=== PATIENT | male | born 1985 ===

== ENCOUNTER 2017-02-18 00:54 | Emergency (ER) | payer SELFPAY ==
[2017-02-18 01:10] VITALS: TEMP 97; O2SAT 99
--- NOTE | 2017-02-18 01:16 | C.PDOC ---
History Of Present Illness pt wants a place to sleep. Is homeless. States he does drugs. Informed that there are no available beds for detox. Denies any suicidal or homicidal ideation Time Seen by Provider: 02/18/17 01:12 Chief Complaint (Nursing): Substance Abuse History Per: Patient History/Exam Limitations: no limitations Onset/Duration Of Symptoms: Days Current Symptoms Are (Timing): Still Present Suicide/Self Injury Attempted (Context): None Modifying Factor(s): Narcotics, Cocaine Severity: None Pain Scale Rating Of: 0 Associated Symptoms: denies: Anger Involuntary Hold By: None Recent travel outside of the [place]: No Additional History Per: Patient Past Medical History Reviewed: Historical Data, Nursing Documentation, Vital Signs Vital Signs: Last Vital Signs Temp 97 F L 02/18/17 01:01 Pulse 89 02/18/17 01:01 Resp 16 02/18/17 01:01 BP 118/67 02/18/17 01:01 Pulse Ox 99 02/18/17 01:17 - Medical History PMH: Bipolar Disorder, Depression, Hepatitis Denies: Diabetes, HIV, HTN, Chronic Kidney Disease, Seizures, Sexually Transmitted Disease Surgical History: Appendectomy - [facility] DETOXIFICATION SERVICES FOR SUBSTANCE ABUSE TREATMENT (05/17/16) Family History: States: No Known Family Hx - Social History Hx Alcohol Use: No Hx Substance Use: Yes - Immunization History Hx Tetanus Toxoid Vaccination: Yes Hx Influenza Vaccination: No Hx Pneumococcal Vaccination: No Review Of Systems Constitutional: Negative for: Fever, Chills Cardiovascular: Negative for: Chest Pain Respiratory: Negative for: Shortness of Breath Gastrointestinal: Negative for: Nausea, Abdominal Pain Genitourinary: Negative for: Dysuria Musculoskeletal: Negative for: Back Pain Skin: Negative for: Jaundice Neurological: Negative for: Weakness Psych: Negative for: Anxiety Physical Exam - Physical Exam Appears: Non-toxic, No Acute Distress Skin: Warm, Dry Oral Mucosa: Moist Neck: Supple Cardiovascular: Rhythm Regular Respiratory: No Rales, No Rhonchi, No Wheezing Gastrointestinal/Abdominal: Soft, No Tenderness Back: Normal Inspection Extremity: Normal ROM Extremity: Bilateral: Normal Color And Temperature Neurological/Psych: Oriented x3, Normal Speech, Normal Cognition Gait: Steady ED Course And Treatment O2 Sat by Pulse Oximetry: 99 Pulse Ox Interpretation: Normal ED OBSERVATION Discharge: Yes Date of observation admission: 02/18/17 Time of observation admission: 01:14 - Observation admission statement Patient is being placed in observation because:: homeless - Goals of Observation Goals of observation are:: social service - Progress Note Progress Note: 02/18/17 01:15 vitals stable, wants to just sleep Disposition Counseled Patient/Family Regarding: Studies Performed, Diagnosis, Need For Followup - Disposition Referrals: [facility] [Outside] Disposition: HOME/ ROUTINE Disposition Time: 01:13 Condition: FAIR Instructions: Polysubstance Abuse (ED) - Clinical Impression Clinical Impression: Drug dependence
[2017-02-18 05:44] VITALS: BP 129/78; PULSE 84; RESP 18
== END 2017-02-18 05:45 | disposition home or self-care (01) ==
LOC: C.ER 00:54
DX: F19.20 Other psychoactive substance dependence, uncomplicated (principal)

== ENCOUNTER 2017-02-18 08:06 | Inpatient (IN) | payer OTHER ==
[2017-02-18 08:12] VITALS: O2SAT 100
--- NOTE | 2017-02-18 08:30 | C.PDOC ---
History Of Present Illness 31 y/o male presents to the ED for psychiatric evaluation. Pt reports suicidal ideation with plan to overdose on heroin. Denies homicidal ideation or any other physical complaints. Time Seen by Provider: 02/18/17 08:08 Chief Complaint (Nursing): Psychiatric Evaluation History Per: Patient History/Exam Limitations: no limitations Onset/Duration Of Symptoms: Days Current Symptoms Are (Timing): Still Present Suicide/Self Injury Attempted (Context): None Modifying Factor(s): Narcotics Severity: Moderate Associated Symptoms: Suicidal Thoughts, Suicidal Plan Involuntary Hold By: None Recent travel outside of the [place]: No Past Medical History Reviewed: Historical Data, Nursing Documentation, Vital Signs Vital Signs: Last Vital Signs Temp 98.2 F 02/18/17 08:09 Pulse 71 02/18/17 08:09 Resp 18 02/18/17 08:09 BP 123/78 02/18/17 08:09 Pulse Ox 100 02/18/17 08:31 - Medical History PMH: Bipolar Disorder, Depression, Hepatitis Surgical History: Appendectomy - [facility] Procedures DETOXIFICATION SERVICES FOR SUBSTANCE ABUSE TREATMENT (05/17/16) Family History: States: Unknown Family Hx - Social History Hx Alcohol Use: No Hx Substance Use: Yes - Immunization History Hx Tetanus Toxoid Vaccination: Yes Hx Influenza Vaccination: No Hx Pneumococcal Vaccination: No Review Of Systems Constitutional: Negative for: Fever Cardiovascular: Negative for: Chest Pain Respiratory: Negative for: Shortness of Breath Gastrointestinal: Negative for: Vomiting, Abdominal Pain Psych: Positive for: Suicidal ideation Physical Exam - Physical Exam Appears: Non-toxic, No Acute Distress Skin: Warm, Dry, No Rash Head: Normacephalic Neck: Normal, Normal ROM, Supple Chest: Symmetrical, No Tenderness Cardiovascular: Rhythm Regular, No Murmur Respiratory: Normal Breath Sounds, No Rales, No Rhonchi, No Wheezing Gastrointestinal/Abdominal: Normal Exam, Soft, No Tenderness Extremity: Normal ROM Extremity: Bilateral: Atraumatic Neurological/Psych: Oriented x3, Normal Speech ED Course And Treatment - Laboratory Results Result Diagrams: 02/18/17 08:51 02/18/17 08:51 Lab Interpretation: Normal O2 Sat by Pulse Oximetry: 100 (room air) Pulse Ox Interpretation: Normal Progress Note: Plan: CRISIS evaluation. Case discussed with crisis slitter cut off operator and request Psych admission to Dr Castelan Reassessment Condition: Unchanged - Physician Consult Information Physician Contacted: Isra Castelan Outcome Of Conversation: admit Disposition Doctor Will See Patient In The: Hospital - Disposition Disposition: HOSPITALIZED Disposition Time: 10:10 Condition: STABLE - POA Present On Arrival: None - Clinical Impression Clinical Impression: Opioid abuse, Bipolar 1 disorder, depressed, severe, Drug dependence - PA / LINEN ATTENDANT / Resident Statement MD/DO has reviewed & agrees with the documentation as recorded. - Scribe Statement The provider has reviewed the documentation as recorded by the Tony Abarca All medical record entries made by the Tony were at my direction and personally dictated by me. I have reviewed the chart and agree that the record accurately reflects my personal performance of the history, physical exam, medical decision making, and the department course for this patient. I have also personally directed, reviewed, and agree with the discharge instructions and disposition. Decision To Admit - Pt Status Changed To: Hospital Disposition Of: Inpatient - Admit Certification Admit to Inpatient:: After my assessment, the patient will require hospitalization for at least two midnights. This is because of the severity of symptoms shown, intensity of services needed, and/or the medical risk in this patient being treated as an outpatient. - InPatient: Physician Admission Certification: I certify that this patient requires 2 or more midnights of care for the following reason:: Opioid Abuse Disorder. Bipolar - . Bed Request Type: Psychiatry Admitting Physician: Isra Castelan Patient Diagnosis: Opioid abuse, Bipolar 1 disorder, depressed, severe
[2017-02-18 08:55] LABS: BASO # 0.1 K/uL (0.0-0.2); BASO % 0.8 % (0.0-2.0); EOS # 0.4 K/uL (0.0-0.7); EOS % 4.7 % (0.0-4.0); HEMATOCRIT 42.7 % (35.0-51.0); LYMPH # 1.4 K/uL (1.0-4.3); LYMPH % 18.7 % (20.0-40.0); MEAN CELL VOLUME 78.9 fL (80.0-94.0); MEAN CORPUSCULAR HEMOGLOBIN 25.6 pg (27.0-31.0); MEAN CORPUSCULAR HGB CONC 32.4 g/dL (33.0-37.0); MEAN PLATELET VOLUME 7.8 fL (7.2-11.7); MONO # 1.1 K/uL (0.0-0.8); MONO % 14.3 % (0.0-10.0); RED CELL DISTRIBUTION WIDTH 14.7 % (11.5-14.5); WHITE BLOOD COUNT 7.7 K/uL (4.8-10.8)
[2017-02-18 09:02] LABS: CHLORIDE 102 mmol/L (98-107)
[2017-02-18 09:03] LABS: POTASSIUM 4.2 mmol/L (3.6-5.2); SODIUM 140 mmol/L (132-148)
[2017-02-18 09:05] LABS: BILIRUBIN,TOTAL 0.6 mg/dL (0.2-1.3); GFR AFRICAN-AMERICAN > 60
[2017-02-18 09:06] LABS: ALB/GLOB RATIO 1.1 (1.0-2.1); ALKALINE PHOSPHATASE 184 U/L (38-126); ALT/SGPT 399 U/L (21-72); AST/SGOT 338 U/L (17-59); BLOOD UREA NITROGEN 12 mg/dL (9-20); CALCIUM 8.9 mg/dl (8.6-10.4); CARBON DIOXIDE 29 mmol/L (22-30); GLUCOSE,RANDOM 79 mg/dL (75-110); TOTAL PROTEIN 7.9 g/dL (6.3-8.3)
[2017-02-18 09:07] LABS: ALCOHOL SERUM < 10 mg/dl (0-10)
[2017-02-18 09:13] LABS: RBC URINE 1 /hpf (0-3); URINE BACTERIA RARE (<OCC); URINE BILIRUBIN NEGATIVE (NEGATIVE); URINE BLOOD NEGATIVE (NEGATIVE); URINE COLOR Yellow (YELLOW); URINE GLUCOSE (UA) NORMAL (Normal); URINE KETONE NEGATIVE (NEGATIVE); URINE LEUKOCYTE ESTERASE TRACE Leu/uL (Negative); URINE PROTEIN NEGATIVE (NEGATIVE)
[2017-02-18 09:25] LABS: WBC URINE 19 /hpf (0-5)
--- NOTE | 2017-02-18 11:56 | PCM.PSYCH ---
Initial Psychiatric Evaluation - Initial Psychiatric Evaluation Type of Admission: Voluntary Legal Status: Capacity Chief Complaint (in patient's own words): "I need help" History of Present Illness and Precipitating Events: The patient is seen, chart reviewed and case discussed. This is a 31-year-old male, single, has a 10-year-old son, homeless and unemployed. He came from [facility]. 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 The patient is a poor historian and he is in withdrawal. He claims he was depressed for several months and also felt suicidal and thought about OD'ing on drugs. He reports previous depression episodes and suicide attempts and [place] [address] [facility] [facility]. However, he points out that his main problem is drug use as he uses 13 bags of intravenous heroin every day since age 24. He also shoots cocaine x7 years. He smokes 1 pack per day cigarettes but he denies other drugs. He was in detox 3 or 4 times but has never done rehabilitation or methadone maintenance. He briefly did Suboxone with a doctor. He denies suicidal ideation in the hospital right now and agrees to talk to the nurses and follow his safety plan. Past psych history: 3 admissions and few of suicide attempts by overdose. Last one was several months ago. No history of psychosis or nikki. Medical history: Denies Family history: Denies Current Medications: Active Medications Generic Name Dose Route Start Last Admin Trade Name Freq PRN Reason Stop Dose Admin Al Hydrox/Mg Hydrox/Simethicone 30 ml 02/18/17 12:00 Maalox 30 Ml PO TID PRN Indigestion / Heartburn Clonidine HCl 0.1 mg 02/18/17 11:51 Catapres PO Q8 PRN COWS Score More or Equal to 5 Fluoxetine HCl 20 mg 02/18/17 12:00 Prozac PO DAILY MARYCRUZ Loperamide HCl 2 mg 02/18/17 11:51 Imodium PO Q8 PRN Diarrhea Ondansetron HCl 4 mg 02/18/17 11:51 Zofran Tab PO Q8 PRN Nausea/Vomiting Past Psychiatric History - Past Psychiatric History Previous Treatment History: Inpatient Pertinent Medical Hx (Current Medical&Sleep Prob, Allergies): Allergies Allergy/AdvReac Type Severity Reaction Status Date / Time No Known Allergies Allergy Verified 02/18/17 01:04 No Known Home Med 02/18/17 Review of Systems - Neurological Neurological: UNREMARKABLE - Psychiatric Psychiatric: Abnormal Sleep Pattern, Anhedonia, Anxiety, Depression, Difficulty Concentrating, Irritability. absent: Hallucinations, Homicidal Ideation, Suicidal Ideation Mental Status Examination - Personal Presentation Personal Presentation: Looks older than stated age - Affect Affect: Constricted - Motor Activity Motor Activity: Calm - Reliability in Providing Information Reliability in Providing Information: Fair - Speech Speech: Organized - Mood Mood: Depressed, Anxious - Formal Thought Process Formal Thought Process: No Impairment - Cognitive Functions Orientation: Person, Place, Situation, Time Sensorium: Alert Attention/Concentration: Easily distracted Estimate of Intelligence: Below average Judgement: Intact, as evidence by: Insight regarding need for hospitalization Memory: Recent intact, as evidence by: Ability to recall events of the day, Remote intact, as evidenced by: Abilit to recall sig. life events - Risk Risk: Withdrawal, Diminished functioning - Strength & Assets Inventory Strength & Assets Inventory: Life experience, Cooperative - Limitations Limitations: Living alone DSM 5 DX - DSM 5 DSM 5 Diagnosis: Major depression, severe recurrent, without psychosis Opioid withdrawal Opioid use d/o - severe Cocaine use severe - Recommended/Plan of Treatment Treatment Recommendations and Plan of Treatment: Depression: -Prozac 20 mg -Attend groups and activities -Support and psychoeducation -Supportive therapy and CBT Opioids: -Methadone detox -As needed medications -Attend groups and activities -GA and CBT for abstinence and relapse prevention Cocaine: -Gabapentin -GA for abstinence Nicotine: -Patch -GA for abstinence 32 minutes Projected ELOS: 5 days Prognosis: Good with treatment Discharge Plan and Discharge Criteria: No wdw sxs Refer to [facility], obtain health insurance and consider MAT and IOP afterwards - Smoking Cessation Smoking Cessation Initiated: Yes
[2017-02-18] MEDS ORDERED: Aluminum Hydroxide/Magnesium Hydroxide Susp (30 mL) PO PRN (12:00)
--- NOTE | 2017-02-19 11:42 | PCM.PYCHPN ---
Psychiatric Progress Note - Psychiatric Progress Note Patient seen today, length of contact: 16 min Patient Chief Complaint: "I am tired" Problems Identified/Issues Discussed: The pt is seen, chart reviewed, case discussed with staff. The pt is compliant with medications and reports no side-effects. Symptoms are improving but needs more time to stabilize. After care discussed, wants to go to [facility] but at the same time he is not that motivated or interested. Likely AMA risk (addressed) support and psychoeducation given. WI used Medication Change: Yes Medical Record Reviewed: Yes Mental Status Examination - Cognitive Function Orientation: Person, Place, Situation, Time Memory: Intact Attention: Poor Concentration: Poor Association: WNL Fund of Knowledge: Poor - Mood Mood: Depressed, Anxious - Affect Affect: Constricted - Speech Speech: Appropriate - Formal Thought Process Formal Thought Process: No Impairment - Suicidal Ideation Suicidal Ideation: No - Homicidal Ideation Homicidal Ideation: No Goal/Treatment Plan - Goal/Treatment Plan Need for Continued Stay: Discharge may exacerbated symptoms, Severe functional impairment Progress Toward Problem(s) and Goals/Treatment Plan: Depression: -Prozac 20 mg -Attend groups and activities -Support and psychoeducation -Supportive therapy and CBT Opioids: -Methadone detox -As needed medications -Attend groups and activities -WI and CBT for abstinence and relapse prevention Cocaine: -Gabapentin -WI for abstinence Nicotine: -Patch -WI for abstinence Estimated Date of D/C: 02/23/17
[2017-02-20 11:52] LABS: CHLORIDE 101 mmol/L (98-107); POTASSIUM 4.2 mmol/L (3.6-5.2); SODIUM 139 mmol/L (132-148)
[2017-02-20 11:54] LABS: ALB/GLOB RATIO 1.1 (1.0-2.1); AST/SGOT 378 U/L (17-59); BILIRUBIN,TOTAL 0.6 mg/dL (0.2-1.3); BLOOD UREA NITROGEN 17 mg/dL (9-20); CARBON DIOXIDE 28 mmol/L (22-30); GFR AFRICAN-AMERICAN > 60; TOTAL PROTEIN 7.5 g/dL (6.3-8.3)
[2017-02-20 11:55] LABS: ALKALINE PHOSPHATASE 155 U/L (38-126); ALT/SGPT 456 U/L (21-72); CALCIUM 9.2 mg/dl (8.6-10.4); GLUCOSE,RANDOM 130 mg/dL (75-110)
--- NOTE | 2017-02-20 12:44 | PCM.PYCHPN ---
Psychiatric Progress Note - Psychiatric Progress Note Patient seen today, length of contact: 16 min Patient Chief Complaint: "I am OK" Problems Identified/Issues Discussed: The pt is seen, chart reviewed, case discussed with staff. Symptoms are improving but needs more time to stabilize. After care discussed, wants to go to [facility] but at the same time he later admitted that he may just do IOP and Vivitrol shot He is planning on staying with his GF in and she is Support and psychoeducation given. CA used Medication Change: Yes (detox ending) Medical Record Reviewed: Yes Mental Status Examination - Cognitive Function Orientation: Person, Place, Situation, Time Memory: Intact Attention: WNL Concentration: WNL Association: WNL Fund of Knowledge: WNL - Mood Mood: Depressed, Anxious - Affect Affect: Constricted - Speech Speech: Appropriate - Formal Thought Process Formal Thought Process: No Impairment - Suicidal Ideation Suicidal Ideation: No - Homicidal Ideation Homicidal Ideation: No Goal/Treatment Plan - Goal/Treatment Plan Need for Continued Stay: Discharge may exacerbated symptoms, Severe functional impairment Progress Toward Problem(s) and Goals/Treatment Plan: Depression: -Prozac 20 mg -Attend groups and activities -Support and psychoeducation -Supportive therapy and CBT Opioids: -Methadone detox -As needed medications -Attend groups and activities -CA and CBT for abstinence and relapse prevention Cocaine: -Gabapentin -CA for abstinence Nicotine: -Patch -CA for abstinence Estimated Date of D/C: 02/23/17
[2017-02-21] MEDS ORDERED: Pneumococcal 23-Valent Vaccine IM ONE (10:00)
--- NOTE | 2017-02-21 18:06 | PCM.PYCHPN ---
Psychiatric Progress Note - Psychiatric Progress Note Patient seen today, length of contact: 15 minutes Patient Chief Complaint: I don't take selective medications. I take what I need Problems Identified/Issues Discussed: Patient seen. Chart reviewed. Case discussed with the staff. Issues related to illness and treatment were discussed with the patient. Reported compliant with treatment with no adverse affects. Staff reported that patient is not taking all of his medications but he picks some of the medications which she take and refuses to take other medications. Issues discussed with the patient. Patient reported he doesn't take all the medication he just take what he needs. Education provided to the patient and after that patient was encouraged to take all of his medications. The time of evaluation was awake alert oriented 3 had no delusions or auditory or visual hallucinations, no suicidal ideations homicidal ideations. Medical Problems: None reported Diagnostic Results: Reviewed DSM 5 Symptoms Update: Improving with treatment Medication Change: No Medical Record Reviewed: Yes Mental Status Examination - Cognitive Function Orientation: Person, Place, Situation, Time Memory: Intact Attention: WNL Concentration: WNL Association: WN Fund of Knowledge: [facility] Decription of patient's judgement and insights: Fair - Mood Mood: Neutral - Affect Affect: Blunted - Speech Speech: Appropriate - Formal Thought Process Formal Thought Process: No Impairment - Suicidal Ideation Suicidal Ideation: No - Homicidal Ideation Homicidal Ideation: No Goal/Treatment Plan - Goal/Treatment Plan Need for Continued Stay: Remain at risks for inpatient hospitalization, Discharge may exacerbated symptoms, Severe functional impairment Progress Toward Problem(s) and Goals/Treatment Plan: Patient education Supportive therapy Continue treatment as before Estimated Date of D/C: 02/23/17 - Smoking Cessation Smoking Cessation Initiated: Yes
--- NOTE | 2017-02-22 16:04 | PCM.PYCHPN ---
Psychiatric Progress Note - Psychiatric Progress Note Patient seen today, length of contact: 15 minutes Patient Chief Complaint: I'm feeling much better now Problems Identified/Issues Discussed: Patient seen. Chart reviewed. Case discussed with the staff. Issues related to illness and treatment were discussed with the patient. Reported compliant with treatment with no adverse affects. Patient reported taking all of his medications and feeling better .staff also confirmed the above . At the time of evaluation was awake alert oriented 3 had no delusions or auditory or visual hallucinations, no suicidal ideations homicidal ideations. Medical Problems: None reported Diagnostic Results: Reviewed DSM 5 Symptoms Update: Improving with treatment Medication Change: No Medical Record Reviewed: Yes Mental Status Examination - Cognitive Function Orientation: Person, Place, Situation, Time Memory: Intact Attention: WNL Concentration: WNL Association: WNL Fund of Knowledge: [facility] Decription of patient's judgement and insights: Fair - Mood Mood: Neutral - Affect Affect: Other (Appropriate) - Speech Speech: Appropriate - Formal Thought Process Formal Thought Process: No Impairment Psychotic Thoughts and Behaviors: None - Suicidal Ideation Suicidal Ideation: No - Homicidal Ideation Homicidal Ideation: No Goal/Treatment Plan - Goal/Treatment Plan Need for Continued Stay: Remain at risks for inpatient hospitalization, Discharge may exacerbated symptoms, Severe functional impairment Progress Toward Problem(s) and Goals/Treatment Plan: Patient education Supportive therapy Continue treatment as before Estimated Date of D/C: 02/23/17 - Smoking Cessation Smoking Cessation Initiated: Yes
[2017-02-23 07:30] VITALS: BP 126/84; PULSE 20; RESP 20; TEMP 98
--- NOTE | 2017-02-23 10:01 | PCM.PYCHDC ---
Mental Status Examination - Mental Status Examination Orientation: Person, Place, Situation, Time Memory: Intact Mood: Anxious Affect: Constricted Speech: Appropriate Attention: WNL Concentration: WNL Association: WNL Fund of Knowledge: WNL Formal Thought Process: No Impairment Suicidal Ideation: No Current Homicidal Ideation?: No Discharge Summary - Discharge Note Reason for Hospitalization: Feeling depressed, suicidal, heroin withdrawal Consultations:: List each consultation separately and include: 1. Reason for request. 2. Findings. 3. Follow-up Summary of Hospital Course include:: 1. Description of specific treatment plan utilized for patients during their course of treatmen. 2. Summarize the time- course for resolution of acute symptoms and/or regressed behaviors. 3. Describe issues identified and worked on during hospitalization. 4. Describe medication utilized. 5. Describe medical problems identified and treated. 6. Reassessment of suicide risk Summary of Hospital Course: The patient is seen, chart reviewed and case discussed. On admission: This is a 31-year-old male, single, has a 10-year-old son, homeless and unemployed. He came from [facility]. 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 The patient is a poor historian and he is in withdrawal. He claims he was depressed for several months and also felt suicidal and thought about OD'ing on drugs. He reports previous depression episodes and suicide attempts and was hospitalized 3 times at [facility] in [facility]. However, he points out that his main problem is drug use as he uses 13 bags of intravenous heroin every day since age 24. He also shoots cocaine x7 years. He smokes 1 pack per day cigarettes but he denies other drugs. He was in detox 3 or 4 times but has never done rehabilitation or methadone maintenance. He briefly did Suboxone with a doctor. He denies suicidal ideation in the hospital right now and agrees to talk to the nurses and follow his safety plan. Past psych history: 3 admissions and few of suicide attempts by overdose. Last one was several months ago. No history of psychosis or nikki. Medical history: Denies Family history: Denies Hospital course: The pt was admitted and started on treatment with psychotherapy, support, psychoeducation and medications. GA and CBT used. The pt attended groups and activities, as well as milieu therapy. He was not much motivated All the risks and benefits of medications are discussed and the patient understood and agreed. After care discussed with the patient. He was initially interested in going to a rehab, ie [facility] and that his k - Final Diagnosis (DSM 5) Condition upon Discharge: STABLE DSM 5: Major depression, severe recurrent, without psychosis Opioid withdrawal Opioid use d/o - severe Cocaine use severe Disposition: HOME/ ROUTINE Follow-up Treatment Plan: Continue below medications after discharge. Follow after care plan as discussed: IOP Consider MAT Use relapse prevention skills Return to ER or call 911 if suicidal, homicidal or symptoms relapse. Stay away from stress, alcohol and drugs. Prescriptions/Medication Reconciliation: FLUoxetine [Prozac] 20 mg PO DAILY #30 cap Gabapentin [Neurontin] 300 mg PO BID #60 cap traZODone [Desyrel] 100 mg PO HS PRN #30 tab PRN Reason: Insomnia - Smoking Cessation Smoking Cessation Medication prescribed: No - Antipsychotic Medications Pt discharged on 2 or more routine antipsychotic medications: No
== END 2017-02-23 10:50 | disposition home or self-care (01) | DRG 744 ==
LOC: C.ER 08:06 → C.5E 10:06
PROVIDERS: ADMIT Psychiatry & Neurology Psychiatry; ATTEND Psychiatry & Neurology Psychiatry
PROC: HZ2ZZZZ Detoxification Services for Substance Abuse Treatment (ICD-10-PCS; principal; 2017-02-18)
PROC: HZ32ZZZ Individual Counseling for Substance Abuse Treatment, Cognitive-Behavioral (ICD-10-PCS; 2017-02-18)
PROC: HZ42ZZZ Group Counseling for Substance Abuse Treatment, Cognitive-Behavioral (ICD-10-PCS; 2017-02-18)
PROC: HZ36ZZZ Individual Counseling for Substance Abuse Treatment, Psychoeducation (ICD-10-PCS; 2017-02-18)
PROC: HZ46ZZZ Group Counseling for Substance Abuse Treatment, Psychoeducation (ICD-10-PCS; 2017-02-18)
PROC: HZ59ZZZ Individual Psychotherapy for Substance Abuse Treatment, Supportive (ICD-10-PCS; 2017-02-18)
DX: F11.23 Opioid dependence with withdrawal (principal); F33.2 Major depressive disorder, recurrent severe without psychotic features; F14.10 Cocaine abuse, uncomplicated; R45.851 Suicidal ideations; K75.9 Inflammatory liver disease, unspecified; F17.210 Nicotine dependence, cigarettes, uncomplicated; Z59.0 Homelessness

== ENCOUNTER 2017-04-04 02:30 | Inpatient (IN) | payer OTHER ==
--- NOTE | 2017-04-04 03:18 | C.PDOC ---
History Of Present Illness A 31 y/o M c/o feeling depressed after his mother past away a few weeks ago. Pt has a Hx of heroin and cocaine use, with his last use being tonight. Denies suicidal, homicidal ideation, or any physical complaints. Time Seen by Provider: 04/04/17 03:16 Chief Complaint (Nursing): Psychiatric Evaluation History Per: Patient History/Exam Limitations: no limitations Onset/Duration Of Symptoms: Hrs Current Symptoms Are (Timing): Still Present Suicide/Self Injury Attempted (Context): None Modifying Factor(s): Narcotics (Heroin), Cocaine Severity: Mild Associated Symptoms: Depression. denies: Suicidal Thoughts, Suicidal Plan Involuntary Hold By: None Recent travel outside of the [place]: No Additional History Per: Patient Past Medical History Reviewed: Historical Data, Nursing Documentation, Vital Signs Vital Signs: Last Vital Signs Temp 98.9 F 04/04/17 03:03 Pulse 78 04/04/17 03:03 Resp 20 04/04/17 03:03 BP 111/68 04/04/17 03:03 Pulse Ox 96 04/04/17 03:18 - Medical History PMH: Bipolar Disorder, Depression, Hepatitis Denies: Anxiety, Diabetes, HIV, HTN, Personality Disorder, Chronic Kidney Disease, Schizophrenia, Seizures, Sexually Transmitted Disease Surgical History: Appendectomy - [facility] Procedures DETOXIFICATION SERVICES FOR SUBSTANCE ABUSE TREATMENT (02/18/17) GROUP [employer] TIME SALES SUPERVISOR FOR SUBSTANCE ABUSE TREATMENT, PSYCHOEDUCATION (02/18/17) GROUP RADIO TIME SALES SUPERVISOR FOR SUBSTANCE ABUSE, COGNITIVE BEHAVIORAL (02/18/17) INDIV RADIO TIME SALES SUPERVISOR FOR SUBSTANCE ABUSE TREATMENT, PSYCHOEDUCATION (02/18/17) INDIV RADIO TIME SALES SUPERVISOR FOR SUBSTANCE ABUSE, COGNITIVE BEHAVIORAL (02/18/17) INDIV PSYCHOTHERAPY FOR SUBSTANCE ABUSE TREATMENT, SUPPORT (02/18/17) Family History: States: Unknown Family Hx - Social History Hx Alcohol Use: No Hx Substance Use: Yes - Immunization History Hx Tetanus Toxoid Vaccination: Yes Hx Influenza Vaccination: No Hx Pneumococcal Vaccination: No Review Of Systems Except As Marked, All Systems Reviewed And Found Negative. Constitutional: Negative for: Fever, Chills Cardiovascular: Negative for: Chest Pain Respiratory: Negative for: Shortness of Breath Gastrointestinal: Negative for: Nausea, Vomiting, Abdominal Pain, Diarrhea Neurological: Negative for: Weakness, Numbness Psych: Positive for: Depression. Negative for: Suicidal ideation Physical Exam - Physical Exam Appears: Non-toxic, No Acute Distress Skin: Warm, Dry Head: Atraumatic, Normacephalic Cardiovascular: Rhythm Regular Respiratory: Normal Breath Sounds, No Accessory Muscle Use, No Rales, No Rhonchi , No Wheezing Gastrointestinal/Abdominal: Soft, No Tenderness Neurological/Psych: Oriented x3, Normal Speech, Other (Alert and conscious) ED Course And Treatment - Laboratory Results Result Diagrams: 04/04/17 03:31 04/04/17 03:31 O2 Sat by Pulse Oximetry: 96 (RA) Pulse Ox Interpretation: Normal Medical Decision Making Medical Decision Making: Impression: A 31 y/o M c/o feeling depressed after his mother past away a few weeks ago. Plans: -Blood labs -UA Disposition Discussed With DrZena: Isra Castelan Doctor Will See Patient In The: Hospital Counseled Patient/Family Regarding: Diagnosis - Disposition Disposition: HOSPITALIZED Disposition Time: 06:38 Condition: STABLE - Clinical Impression Clinical Impression: Depression, Opioid abuse - Scribe Statement The provider has reviewed the documentation as recorded by the Scribmanju perera All medical record entries made by the Maritaibmanju were at my direction and personally dictated by me. I have reviewed the chart and agree that the record accurately reflects my personal performance of the history, physical exam, medical decision making, and the department course for this patient. I have also personally directed, reviewed, and agree with the discharge instructions and disposition.
[2017-04-04 03:39] LABS: SQUAMOUS EPITHIAL 1 /hpf (0-5); URINE BILIRUBIN NEGATIVE (NEGATIVE); URINE BLOOD NEGATIVE (NEGATIVE); URINE CLARITY Clear (Clear); URINE COLOR Yellow (YELLOW); URINE GLUCOSE (UA) NORMAL (Normal); URINE LEUKOCYTE ESTERASE TRACE Leu/uL (Negative); URINE NITRATE NEGATIVE (NEGATIVE); URINE PROTEIN NEGATIVE (NEGATIVE); URINE UROBILINOGEN NORMAL mg/dL (0.2-1.0)
[2017-04-04 03:40] LABS: BASO % 0.6 % (0.0-2.0); EOS # 0.3 K/uL (0.0-0.7); EOS % 3.9 % (0.0-4.0); HEMOGLOBIN 12.5 g/dL (12.0-18.0); LYMPH # 2.2 K/uL (1.0-4.3); LYMPH % 31.1 % (20.0-40.0); MEAN CELL VOLUME 78.8 fL (80.0-94.0); MEAN CORPUSCULAR HEMOGLOBIN 24.7 pg (27.0-31.0); MEAN CORPUSCULAR HGB CONC 31.3 g/dL (33.0-37.0); MONO # 0.9 K/uL (0.0-0.8); MONO % 11.9 % (0.0-10.0); NEUT # 3.8 K/uL (1.8-7.0); NEUT % 52.5 % (50.0-75.0); RBC 5.06 Mil/uL (4.40-5.90); RED CELL DISTRIBUTION WIDTH 15.5 % (11.5-14.5); WHITE BLOOD COUNT 7.2 K/uL (4.8-10.8)
[2017-04-04 03:42] LABS: ALBUMIN 3.9 g/dL (3.5-5.0)
[2017-04-04 03:44] LABS: GFR AFRICAN-AMERICAN > 60; GFR NON-AFRICAN AMERICAN > 60
[2017-04-04 03:45] LABS: ALT/SGPT 409 U/L (21-72); AST/SGOT 319 U/L (17-59); BLOOD UREA NITROGEN 12 mg/dL (9-20); CALCIUM 8.9 mg/dl (8.6-10.4)
[2017-04-04 03:51] LABS: BENZODIAZEPINES, UR NEGATIVE (NEGATIVE)
[2017-04-04 03:52] LABS: BARBITURATES, UR NEGATIVE (NEGATIVE)
[2017-04-04 03:55] LABS: PHENCYCLIDINE, UR NEGATIVE (NEGATIVE)
[2017-04-04 04:03] LABS: OPIATES, UR POSITIVE (NEGATIVE)
--- NOTE | 2017-04-04 10:47 | PCM.PSYCH ---
Initial Psychiatric Evaluation - Initial Psychiatric Evaluation Type of Admission: Voluntary Legal Status: Capacity Chief Complaint (in patient's own words): 'I was feeling depressed and suicidal' History of Present Illness and Precipitating Events: Patient is a 31 years old HM, currently homeless, with a history of Bipolar Disorder, opioid abuse and cocaine abuse came to the ED with depressed mood, and suicidal ideation. Patient reports that he is abusing up to a bundle of heroin daily long with 1 gram of cocaine. He was recently discharged from [facility] almost 2 months ago for the same reason. Patient states that he stopped taking his meds and relapsed on cocaine and heroin. Yesterday he injected almost 10 bags of heroin along with 1 gram of cocaine developed suicidal ideation so came to the hospital; to get help. He reports depressed and irritable mood, feelings of hopelessness and helplessness, and poor sleep. He also reports withdrawal symptoms, i.e, headache , anxiety, nausea, abdominal cramps, joint pains and sweating. He denies any auditory or visual hallucinations or any psychotic symptoms. He denies drinking or any other substance abuse. As per medical history None reported Past Psychiatric History - Past Psychiatric History Previous Treatment History: Inpatient Pertinent Medical Hx (Current Medical&Sleep Prob, Allergies): Allergies Allergy/AdvReac Type Severity Reaction Status Date / Time No Known Allergies Allergy Verified 02/18/17 01:04 FLUoxetine [Prozac] 20 mg PO DAILY #30 cap 02/23/17 Gabapentin [Neurontin] 300 mg PO BID #60 cap 02/23/17 traZODone [Desyrel] 100 mg PO HS PRN #30 tab 02/23/17 Review of Systems - Review of Systems All systems: reviewed and no additional remarkable complaints except - Psychiatric Psychiatric: Anxiety, Depression, Irritability, Suicidal Ideation Mental Status Examination - Personal Presentation Personal Presentation: Looks stated age - Affect Affect: Constricted, Depressed - Motor Activity Motor Activity: Calm - Reliability in Providing Information Reliability in Providing Information: Good - Speech Speech: Organized - Mood Mood: Depressed, Anxious - Formal Thought Process Formal Thought Process: No Impairment - Obsessions/Compulsions Obsessions: No Compulsions: No - Cognitive Functions Orientation: Person, Place, Situation, Time Sensorium: Alert Attention/Concentration: Attentive Abstract Thinking: Marshall Estimate of Intelligence: Below average Judgement: Imparied, as evidence by: Poor judgement, Imparied, as evidence by: Lack of insight into illness - Risk Risk: Suicidal, Withdrawal, Diminished functioning - Strength & Assets Inventory Strength & Assets Inventory: Cooperative DSM 5 DX - DSM 5 DSM 5 Diagnosis: Major depressive disorder recurrent moderate CBT Psychoeducation Supportive therapy, group therapy, individual therapy Paxil 10 mg PO Daily Trazodone 50 mg by mouth daily at bedtime Opioid use disorder severe CBT Psychoeducation Supportive therapy, individual therapy Use [place] for abstinence Opioid withdrawal CBT Psychoeducation Supportive therapy, individual therapy Clonidine when necessary Methadone taper Cocaine use disorder severe Monitor signs and symptoms Use AL for abstinence - Recommended/Plan of Treatment Treatment Recommendations and Plan of Treatment: Major depressive disorder recurrent moderate CBT Psychoeducation Supportive therapy, group therapy, individual therapy Paxil 10 mg PO Daily Trazodone 50 mg by mouth daily at bedtime Opioid use disorder severe CBT Psychoeducation Supportive therapy, individual therapy Use [place] for abstinence Opioid withdrawal CBT Psychoeducation Supportive therapy, individual therapy Clonidine when necessary Methadone taper Cocaine use disorder severe Monitor signs and symptoms Use AL for abstinence - Smoking Cessation Smoking Cessation Initiated: No
[2017-04-04 12:30] VITALS: O2SAT 98
--- NOTE | 2017-04-04 17:18 | PCM.BM ---
<Nilo Fuentes - Last Filed: 04/04/17 17:15> Treatment Plan Problems - Problems identified on initial assessmt Depression Date Initiated: 04/04/17 Time Initiated: 17:15 Assessment reference: NA Status: Active Opiate abuse Date Initiated: 04/04/17 Time Initiated: 17:15 Assessment reference: NA Status: Active ([id number]) - Milieu Protocol Milieu Narrative: Major depressive disorder recurrent moderate CBT Psychoeducation Supportive therapy, group therapy, individual therapy Paxil 10 mg PO Daily Trazodone 50 mg by mouth daily at bedtime Opioid use disorder severe CBT Psychoeducation Supportive therapy, individual therapy Use [place] for abstinence Opioid withdrawal CBT Psychoeducation Supportive therapy, individual therapy Clonidine when necessary Methadone taper Cocaine use disorder severe Monitor signs and symptoms Use [place] for abstinence Discharge/Continuing Care - Additional Comments Major depressive disorder recurrent moderate CBT Psychoeducation Supportive therapy, group therapy, individual therapy Paxil 10 mg PO Daily Trazodone 50 mg by mouth daily at bedtime Opioid use disorder severe CBT Psychoeducation Supportive therapy, individual therapy Use [place] for abstinence Opioid withdrawal CBT Psychoeducation Supportive therapy, individual therapy Clonidine when necessary Methadone taper Cocaine use disorder severe Monitor signs and symptoms Use [place] for abstinence - Treatment Team Participation Patient/Family/SO Statement: Major depressive disorder recurrent moderate CBT Psychoeducation Supportive therapy, group therapy, individual therapy Paxil 10 mg PO Daily Trazodone 50 mg by mouth daily at bedtime Opioid use disorder severe CBT Psychoeducation Supportive therapy, individual therapy Use [place] for abstinence Opioid withdrawal CBT Psychoeducation Supportive therapy, individual therapy Clonidine when necessary Methadone taper Cocaine use disorder severe Monitor signs and symptoms Use CA for abstinence <Isra Castelan - Last Filed: 04/08/17 11:07> - Diagnosis (1) Depression Status: Acute Interventions: 04/06/17 11:31 Attend groups, take meds (2) Opioid abuse Status: Acute Interventions: 04/06/17 11:31 Attend groups, take meds
--- NOTE | 2017-04-05 10:40 | PCM.PYCHPN ---
Psychiatric Progress Note - Psychiatric Progress Note Patient seen today, length of contact: 16 min Patient Chief Complaint: I am feeling depressed. Problems Identified/Issues Discussed: Patient seen and evaluated, chart reviewed and discussed with the nurse. Patient still remained depressed and isolated. He reports depressed mood and poor sleep. He still reports withdrawal symptoms including, cramps, nausea, anxiety and headaches. He denies any auditory or visual hallucinations. He is tolerating the withdrawal medications and denies any side effects. Supportive therapy and psychoeducation were given. Medication Change: Yes (Methadone taper) Medical Record Reviewed: Yes Mental Status Examination - Cognitive Function Orientation: Person, Place, Situation, Time Memory: Intact Attention: Poor Concentration: Poor Association: WNL Fund of Knowledge: Poor - Mood Mood: Depressed, Anxious - Affect Affect: Constricted, Depressed - Speech Speech: Soft - Formal Thought Process Formal Thought Process: No Impairment - Suicidal Ideation Suicidal Ideation: No - Homicidal Ideation Homicidal Ideation: No Goal/Treatment Plan - Goal/Treatment Plan Need for Continued Stay: Discharge may exacerbated symptoms, Severe functional impairment Progress Toward Problem(s) and Goals/Treatment Plan: Major depressive disorder recurrent moderate CBT Psychoeducation Supportive therapy, group therapy, individual therapy Paxil 10 mg PO Daily Trazodone 50 mg by mouth daily at bedtime Opioid use disorder severe CBT Psychoeducation Supportive therapy, individual therapy Use [place] for abstinence Opioid withdrawal CBT Psychoeducation Supportive therapy, individual therapy Clonidine when necessary Methadone taper Cocaine use disorder severe Monitor signs and symptoms Use [place] for abstinence - Smoking Cessation Smoking Cessation Initiated: No
--- NOTE | 2017-04-06 18:49 | PCM.PYCHPN ---
Psychiatric Progress Note - Psychiatric Progress Note Patient seen today, length of contact: 16 min Patient Chief Complaint: 'I m still feeling depressed' Problems Identified/Issues Discussed: Patient seen and evaluated, chart reviewed and discussed with the nurse. as per the staff, patient remained depressed and isolated. He still reports depressed mood and withdrawal symptoms i.e., cramps, nausea, anxiety and headaches. He denies any auditory or visual hallucinations. He is tolerating the withdrawal medications and denies any side effects. Supportive therapy and psychoeducation were given. Medication Change: Yes (methadone taper) Medical Record Reviewed: Yes Mental Status Examination - Cognitive Function Orientation: Person, Place, Situation, Time Memory: Intact Attention: WNL Concentration: Poor Association: WNL Fund of Knowledge: Poor - Mood Mood: Depressed, Anxious - Affect Affect: Constricted, Depressed - Speech Speech: Soft - Formal Thought Process Formal Thought Process: No Impairment - Suicidal Ideation Suicidal Ideation: No - Homicidal Ideation Homicidal Ideation: No Goal/Treatment Plan - Goal/Treatment Plan Need for Continued Stay: Discharge may exacerbated symptoms, Severe functional impairment Progress Toward Problem(s) and Goals/Treatment Plan: Major depressive disorder recurrent moderate CBT Psychoeducation Supportive therapy, group therapy, individual therapy Paxil 10 mg PO Daily Trazodone 50 mg by mouth daily at bedtime Opioid use disorder severe CBT Psychoeducation Supportive therapy, individual therapy Use [place] for abstinence Opioid withdrawal CBT Psychoeducation Supportive therapy, individual therapy Clonidine when necessary Methadone taper Cocaine use disorder severe Monitor signs and symptoms Use [place] for abstinence - Smoking Cessation Smoking Cessation Initiated: No
[2017-04-07 09:39] VITALS: RESP 20
--- NOTE | 2017-04-08 10:26 | PCM.PYCHPN ---
Psychiatric Progress Note - Psychiatric Progress Note Patient seen today, length of contact: 16 min Patient Chief Complaint: I am feeling better.' Problems Identified/Issues Discussed: Patient seen and evaluated, chart reviewed and discussed with the nurse. Patient reports improvement in his mood and improvement in the withdrawal symptoms. No acute complaints. He reports improvement in his sleep and appetite. He reports that he wants to go back to the [facility]. He needs more time for stabilization. He is tolerating the withdrawal medications and denies any side effects. Supportive therapy and psychoeducation were given. Medication Change: Yes (Methadone taper, start Neurontin) Medical Record Reviewed: Yes Mental Status Examination - Cognitive Function Orientation: Person, Place, Situation, Time Memory: Intact Attention: WNL Concentration: Poor Association: WNL Fund of Knowledge: Poor - Mood Mood: Depressed, Anxious - Affect Affect: Constricted, Depressed - Speech Speech: Soft - Formal Thought Process Formal Thought Process: No Impairment - Suicidal Ideation Suicidal Ideation: No - Homicidal Ideation Homicidal Ideation: No Goal/Treatment Plan - Goal/Treatment Plan Need for Continued Stay: Discharge may exacerbated symptoms, Severe functional impairment Progress Toward Problem(s) and Goals/Treatment Plan: Major depressive disorder recurrent moderate CBT Psychoeducation Supportive therapy, group therapy, individual therapy Paxil 10 mg PO Daily Trazodone 50 mg by mouth daily at bedtime Neurontin 100 mg by mouth twice a day Opioid use disorder severe CBT Psychoeducation Supportive therapy, individual therapy Use [place] for abstinence Opioid withdrawal CBT Psychoeducation Supportive therapy, individual therapy Clonidine when necessary Methadone taper Cocaine use disorder severe Monitor signs and symptoms Use [place] for abstinence - Smoking Cessation Smoking Cessation Initiated: No
--- NOTE | 2017-04-08 10:26 | PCM.PYCHPN ---
Psychiatric Progress Note - Psychiatric Progress Note Patient seen today, length of contact: 16 min Patient Chief Complaint: I am feeling little better.' Problems Identified/Issues Discussed: Patient seen and evaluated, chart reviewed and discussed with the nurse. The patient reports improvement in his mood and somewhat improvement in the withdrawal symptoms but still reports cramps, anxiety and joint pains. He denies any suicidal ideation or any auditory or visual hallucinations. He is tolerating the withdrawal medications and denies any side effects. He needs more time for stabilization Supportive therapy and psychoeducation were given. Medication Change: Yes (Methadone taper) Medical Record Reviewed: Yes Mental Status Examination - Cognitive Function Orientation: Person, Place, Situation, Time Memory: Intact Attention: WNL Concentration: Poor Association: WNL Fund of Knowledge: Poor - Mood Mood: Depressed, Anxious - Affect Affect: Constricted, Depressed - Speech Speech: Soft - Formal Thought Process Formal Thought Process: No Impairment - Suicidal Ideation Suicidal Ideation: No - Homicidal Ideation Homicidal Ideation: No Goal/Treatment Plan - Goal/Treatment Plan Need for Continued Stay: Discharge may exacerbated symptoms, Severe functional impairment Progress Toward Problem(s) and Goals/Treatment Plan: Major depressive disorder recurrent moderate CBT Psychoeducation Supportive therapy, group therapy, individual therapy Paxil 10 mg PO Daily Trazodone 50 mg by mouth daily at bedtime Opioid use disorder severe CBT Psychoeducation Supportive therapy, individual therapy Use [place] for abstinence Opioid withdrawal CBT Psychoeducation Supportive therapy, individual therapy Clonidine when necessary Methadone taper Cocaine use disorder severe Monitor signs and symptoms Use [place] for abstinence - Smoking Cessation Smoking Cessation Initiated: No
--- NOTE | 2017-04-08 22:14 | CP.PCM.PN ---
Subjective - Date & Time of Evaluation Date of Evaluation: 04/08/17 Time of Evaluation: 09:55 - Subjective Subjective: House Doc Note, Code Star Code star called at 21:52. Per nursing report and patient report - patient was in the community room on 5E, rocking his chair backwards, when it slipped from under him. On his way down, he caught his R elbow on the chair beside him, and landed on his buttocks, gently hitting his head. When I arrived, he was already at the nurses station waiting. Patient seen and examined. No head trauma appreciated, he denied headache, change in vision, dizziness, or pain to palpation of the scalp. He denied lumbar/sacral pain or buttock pain. His sole complaint was mild tenderness to palpation of the R medial elbow. Otherwise he states there is no pain without palpation. Motion testing completed, full ROM. Attending notified by RN. Currently patient is stable and denies head pain, if neurological status changes, will order CT head. Jefferson Carmona, PGY2 Objective - Vital Signs/Intake and Output Vital Signs (last 24 hours): Temp Pulse Resp BP Pulse Ox 96 F L 68 20 100/61 98 04/07/17 15:41 04/08/17 16:46 04/07/17 15:41 04/08/17 16:46 04/04/17 06:43 - Medications Medications: Current Medications Acetaminophen (Tylenol 325mg Tab) 650 mg PO Q4H PRN PRN Reason: Fever greater than 101 F Last Admin: 04/07/17 09:38 Dose: 650 mg Ciprofloxacin (Cipro) 500 mg PO BID [facility] Last Admin: 04/08/17 18:24 Dose: 500 mg Clonidine HCl (Catapres) 0.1 mg PO Q8 PRN PRN Reason: COWS Score More or Equal to 5 Diphenhydramine HCl (Benadryl) 50 mg PO Q6 PRN PRN Reason: Extra Pyramidal Symptoms Gabapentin (Neurontin) 100 mg PO BID [facility] Last Admin: 04/08/17 18:24 Dose: 100 mg Hydroxyzine HCl (Atarax) 25 mg PO Q6 PRN PRN Reason: Agitation Last Admin: 04/07/17 21:36 Dose: 25 mg Loperamide HCl (Imodium) 2 mg PO Q8 PRN PRN Reason: Diarrhea Methadone HCl (Methadone) 5 mg PO DAILY [facility] PRN Reason: Taper Stop: 04/09/17 09:59 Last Admin: 04/08/17 10:19 Dose: 5 mg Ondansetron HCl (Zofran Tab) 4 mg PO Q8 PRN PRN Reason: Nausea/Vomiting Paroxetine HCl (Paxil) 10 mg PO QAM [facility] Last Admin: 04/08/17 10:19 Dose: 10 mg Trazodone HCl (Desyrel) 50 mg PO HS [facility] Last Admin: 04/07/17 21:36 Dose: 50 mg - Constitutional Appears: Non-toxic, No Acute Distress - Head Exam Head Exam: ATRAUMATIC, NORMAL INSPECTION, NORMOCEPHALIC - Eye Exam Eye Exam: EOMI, Normal appearance - ENT Exam ENT Exam: Mucous Membranes Moist - Neck Exam Neck Exam: absent: Lymphadenopathy - Respiratory Exam Respiratory Exam: Clear to Ausculation Bilateral, NORMAL BREATHING PATTERN. absent: Rhonchi, Wheezes - Cardiovascular Exam Cardiovascular Exam: REGULAR RHYTHM, +S1, +S2 - GI/Abdominal Exam GI & Abdominal Exam: Soft, Normal Bowel Sounds. absent: Tenderness - Extremities Exam Extremities Exam: Full ROM, Normal Inspection. absent: Normal Capillary Refill , Pedal Edema, Tenderness Additional comments: -mild contusion to R medial elbow, minimal swelling. mildly tender to palpation -needle tracks appreciated on R forearm - Back Exam Back Exam: NORMAL INSPECTION. absent: CVA tenderness (L), CVA tenderness (R), paraspinal tenderness, tenderness, vertebral tenderness - Neurological Exam Neurological Exam: Alert, Awake, Normal Gait, Oriented x3, Reflexes Normal. absent: CN II-XII Intact - Psychiatric Exam Psychiatric exam: Normal Affect, Normal Mood - Skin Skin Exam: Dry, Intact, Normal Color, Warm
[2017-04-09 08:00] VITALS: BP 119/82; PULSE 84; TEMP 98.2
== END 2017-04-09 10:40 | disposition home or self-care (01) | DRG 430 ==
LOC: C.ER 02:30 → C.9E 06:39 → C.5E 08:33
PROVIDERS: ADMIT Psychiatry & Neurology Psychiatry; ATTEND Psychiatry & Neurology Psychiatry
PROC: GZHZZZZ Group Psychotherapy (ICD-10-PCS; principal; 2017-04-04)
PROC: HZ2ZZZZ Detoxification Services for Substance Abuse Treatment (ICD-10-PCS; 2017-04-04)
PROC: HZ52ZZZ Individual Psychotherapy for Substance Abuse Treatment, Cognitive-Behavioral (ICD-10-PCS; 2017-04-04)
PROC: HZ59ZZZ Individual Psychotherapy for Substance Abuse Treatment, Supportive (ICD-10-PCS; 2017-04-04)
PROC: HZ56ZZZ Individual Psychotherapy for Substance Abuse Treatment, Psychoeducation (ICD-10-PCS; 2017-04-04)
DX: F33.1 Major depressive disorder, recurrent, moderate (principal); K75.9 Inflammatory liver disease, unspecified; F11.23 Opioid dependence with withdrawal; F14.10 Cocaine abuse, uncomplicated; R45.851 Suicidal ideations; Z59.0 Homelessness

== ENCOUNTER 2017-06-03 12:35 | Inpatient (IN) | payer MEDICAID, OTHER ==
--- NOTE | 2017-06-03 13:44 | C.PDOC ---
History Of Present Illness 31 y/o male with Hx of Heroine and cocaine abuse presents to ED with complaints of feeling like he is withdrawing with associated sweating. Patient states he last used IV heroin 2 days ago and has used for many years. At ED he is having SI and feels like "going out and over dosing". Patient denies fever, chills, sob , chest pain, n/v/d or any other complaints at this time. Time Seen by Provider: 06/03/17 13:32 Chief Complaint (Nursing): Substance Abuse History Per: Patient History/Exam Limitations: no limitations Onset/Duration Of Symptoms: Days Current Symptoms Are (Timing): Still Present Suicide/Self Injury Attempted (Context): None Modifying Factor(s): Narcotics, Cocaine Past Medical History Reviewed: Historical Data, Nursing Documentation, Vital Signs Vital Signs: Last Vital Signs Temp 98.3 F 06/03/17 13:42 Pulse 97 H 06/03/17 13:42 Resp 18 06/03/17 13:42 BP 108/68 06/03/17 13:42 Pulse Ox 100 06/03/17 13:46 - Medical History PMH: Bipolar Disorder, Depression, Hepatitis Surgical History: Appendectomy - [facility] Procedures DETOXIFICATION SERVICES FOR SUBSTANCE ABUSE TREATMENT (04/04/17) GROUP KNUCKLER FOR SUBSTANCE ABUSE TREATMENT, PSYCHOEDUCATION (02/18/17) GROUP KNUCKLER FOR SUBSTANCE ABUSE, COGNITIVE BEHAVIORAL (02/18/17) GROUP PSYCHOTHERAPY (04/04/17) INDIV KNUCKLER FOR SUBSTANCE ABUSE TREATMENT, PSYCHOEDUCATION (02/18/17) INDIV KNUCKLER FOR SUBSTANCE ABUSE, COGNITIVE BEHAVIORAL (02/18/17) INDIV PSYCHOTHERAPY FOR SUBSTANCE ABUSE TREATMENT, SUPPORT (04/04/17) INDIV PSYCHOTHERAPY FOR SUBSTANCE ABUSE, COGNITIV BEHAVIORAL (04/04/17) INDIV PSYCHOTHERAPY FOR SUBSTANCE ABUSE, PSYCHOEDUCATION (04/04/17) Family History: States: No Known Family Hx - Social History Hx Alcohol Use: No Hx Substance Use: Yes - Immunization History Hx Tetanus Toxoid Vaccination: Yes Hx Influenza Vaccination: No Hx Pneumococcal Vaccination: No Review Of Systems Constitutional: Negative for: Fever, Chills Cardiovascular: Negative for: Chest Pain Respiratory: Negative for: Shortness of Breath Gastrointestinal: Negative for: Nausea, Vomiting, Diarrhea Skin: Negative for: Rash Neurological: Negative for: Weakness, Numbness Psych: Positive for: Suicidal ideation, Withdrawal Physical Exam - Physical Exam Appears: Non-toxic, No Acute Distress Skin: Normal Color, Warm, Dry, No Rash Head: Atraumatic, Normacephalic Eye(s): bilateral: Normal Inspection Oral Mucosa: Moist Neck: Normal ROM, Supple Chest: Symmetrical Cardiovascular: Rhythm Regular, No Murmur Respiratory: Normal Breath Sounds, No Rales, No Rhonchi, No Wheezing Gastrointestinal/Abdominal: Soft, No Tenderness, No Guarding, No Rebound Extremity: Normal ROM, Capillary Refill (<2 seconds) Neurological/Psych: Oriented x3, Normal Speech, Normal Cognition, Normal Motor, Normal Sensation ED Course And Treatment - Laboratory Results Result Diagrams: 06/03/17 15:30 Lab Interpretation: Abnormal (Elevated LFTs, K+ 5.7 in a hemolyzed specimen, UDS + cocaine and opiates) O2 Sat by Pulse Oximetry: 100 (RA) Pulse Ox Interpretation: Normal Progress Note: Patient was evaluated by crisis and accepted for admission for heroin detox. He is medically cleared for admission. Disposition - Disposition Disposition: HOSPITALIZED Disposition Time: 16:45 Condition: STABLE - POA Present On Arrival: None - Clinical Impression Clinical Impression: Opiate dependence, continuous - Scribe Statement The provider has reviewed the documentation as recorded by the Maritaibmanju Adan All medical record entries made by the Maritaibmanju were at my direction and personally dictated by me. I have reviewed the chart and agree that the record accurately reflects my personal performance of the history, physical exam, medical decision making, and the department course for this patient. I have also personally directed, reviewed, and agree with the discharge instructions and disposition.
[2017-06-03 14:56] LABS: RBC URINE 3 /hpf (0-3); URINE BILIRUBIN NEGATIVE (NEGATIVE); URINE BLOOD NEGATIVE (NEGATIVE); URINE COLOR Yellow (YELLOW); URINE GLUCOSE (UA) NORMAL (Normal); URINE KETONE NEGATIVE (NEGATIVE); URINE LEUKOCYTE ESTERASE NEG Leu/uL (Negative); URINE PROTEIN NEGATIVE (NEGATIVE); WBC URINE 6 /hpf (0-5)
[2017-06-03 15:57] LABS: ALCOHOL SERUM < 10 mg/dl (0-10); ALKALINE PHOSPHATASE 132 U/L (38-126); ALT/SGPT 214 U/L (21-72); AST/SGOT 174 U/L (17-59); BILIRUBIN,TOTAL 0.9 mg/dL (0.2-1.3); BLOOD UREA NITROGEN 15 mg/dL (9-20); CALCIUM 9.5 mg/dl (8.6-10.4); CARBON DIOXIDE 24 mmol/L (22-30); CHLORIDE 104 mmol/L (98-107); GFR AFRICAN-AMERICAN > 60; GLUCOSE,RANDOM 97 mg/dL (75-110); SODIUM 140 mmol/L (132-148); TOTAL PROTEIN 8.2 g/dL (6.3-8.3)
[2017-06-03 16:03] LABS: POTASSIUM 5.7 mmol/L (3.6-5.2)
--- NOTE | 2017-06-03 17:15 | PCM.BM ---
<Nolvia Khan - Last Filed: 06/03/17 17:14> Treatment Plan Problems - Problems identified on initial assessmt potiential for opiate withdrawal Date Initiated: 06/03/17 Time Initiated: 17:15 Assessment reference: NA Status: Active Treatment assets and liabiliti Patient Assests: ADL independent, physically healthy Patient Liabilities: substance abuse - Milieu Protocol Maintain good personal hygiene: daily Encourage regular showers, daily Remind patient to perform daily oral care, daily Assist patient to perform ADL's Maintain personal safety: every shift Educate patient to report safety concerns to staff, every shift Monitor environment for contraband/sharps Medication safety: Monitor for expected outcome, potential side effects: every shift, Assess barriers to learning: every shift, Assess readiness for medication education: every shift <Shahram Mercado - Last Filed: 06/04/17 12:43> - Diagnosis (1) Opioid use disorder, severe, dependence Status: Acute Interventions: 06/04/17 12:44 * Assess 7x/week regarding severity of withdrawal * Educate regarding risks, benefits, side effects and alternatives of medications * Use Motivational Interviewing for abstinence * Use CBT for relapse prevention * Medication management for withdrawal symptoms * Encourage medication assisted treatment * (2) Cocaine use disorder, severe, dependence Status: Acute Interventions: 06/04/17 12:44 * Assess 7x/week regarding severity of withdrawal * Educate regarding risks, benefits, side effects and alternatives of medications * Use Motivational Interviewing for abstinence * Use CBT for relapse prevention * Medication management for withdrawal symptoms * Encourage medication assisted treatment * <Nichole Velazquez - Last Filed: 06/05/17 09:49> Family Contact Family involvement: Patient does not wish Family/SO involvement Family contact: Patient declines to allow family contact at present - Goals for Treatment Patient goals for treatment: Complete detox and transition to the [facility] for long-term rehab. Discharge/Continuing Care - Education Needs Education Needs: Patient Medication, Patient Diagnosis/Disease Process, Patient Coping Skills, Patient Anger Management skills, Patient Placement options - Discharge Discharge Criteria: Free of Suicidal thoughts, Free of agitation, Normal sleep pattern, No longer exhibiting s/s of withdrawal, Reduction of target symptoms Discharge to:: Substance Abuse Rehab - Treatment Team Participation Patient/Family/SO Statement: 06/05/17 09:49 "I need to go to the [facility] when I'm done". Discussed with Family/SO: No Was Patient/Family/SO present at Treatment Team Meeting: Yes
[2017-06-03] MEDS ORDERED: Buprenorphine Hydrochloride 2 mg SL ONE ×2 (17:45→19:00)
[2017-06-03 17:49] VITALS: RESP 18
[2017-06-03] MEDS ORDERED: Aluminum Hydroxide/Magnesium Hydroxide Susp (30 mL) PO PRN (19:46)
[2017-06-04] MEDS: Buprenorphine Hydrochloride 2 mg SL SCH (11:20)
--- NOTE | 2017-06-04 12:49 | PCM.PSYCH ---
Initial Psychiatric Evaluation - Initial Psychiatric Evaluation Type of Admission: Voluntary Legal Status: Capacity Chief Complaint (in patient's own words): "Heroin" History of Present Illness and Precipitating Events: The patient is seen, chart reviewed and case discussed. He is known from previous admissions. This is a 31-year-old male, single with 2 children, one is 10 years old and the other is "on the way" He is homeless and unemployed, however he reported to our coordinator that he sometimes stays with his ex-girlfriend and their kids. The patient is here for detox from heroine. He uses 15 bags intravenously since age 24. He had couple of detoxes but no rehabs. He also uses cocaine but denies other drugs and alcohol. He smokes 1 pack per day cigarettes. He currently denies psych symptoms Past psych history: Couple of admissions and one suicide attempt "very long ago " Family psych history: Denies Medical history: Hepatitis C Current Medications: Active Medications Generic Name Dose Route Start Last Admin Trade Name Freq PRN Reason Stop Dose Admin Al Hydrox/Mg Hydrox/Simethicone 30 ml 06/03/17 19:46 Maalox 30 Ml PO TID PRN Indigestion / Heartburn Buprenorphine HCl 8 mg 06/04/17 10:00 06/04/17 11:20 Subutex SL 06/08/17 09:59 8 mg DAILY MARYCRUZ Administration Taper Clonidine HCl 0.1 mg 06/03/17 19:46 Catapres PO Q8 PRN COWS Score More or Equal to 5 Hydroxyzine HCl 50 mg 06/03/17 18:18 Atarax PO Q6H PRN Anxiety Ibuprofen 600 mg 06/03/17 18:18 Motrin Tab PO Q6H PRN Pain, moderate (4-7) Loperamide HCl 2 mg 06/03/17 19:46 Imodium PO Q8 PRN Diarrhea Ondansetron HCl 4 mg 06/03/17 19:46 Zofran Tab PO Q8 PRN Nausea/Vomiting Trazodone HCl 100 mg 06/03/17 18:18 Desyrel PO HS PRN Insomnia Past Psychiatric History - Past Psychiatric History Previous Treatment History: Inpatient Pertinent Medical Hx (Current Medical&Sleep Prob, Allergies): Allergies Allergy/AdvReac Type Severity Reaction Status Date / Time No Known Allergies Allergy Verified 06/03/17 13:22 No Known Home Med 06/03/17 Review of Systems - Neurological Neurological: UNREMARKABLE - Psychiatric Psychiatric: Abnormal Sleep Pattern, Anxiety, Irritability. absent: Depression , Hallucinations, Homicidal Ideation, Suicidal Ideation Mental Status Examination - Personal Presentation Personal Presentation: Looks stated age - Affect Affect: Blunted - Motor Activity Motor Activity: Calm - Reliability in Providing Information Reliability in Providing Information: Good - Speech Speech: Organized - Mood Mood: Anxious - Formal Thought Process Formal Thought Process: No Impairment - Cognitive Functions Orientation: Person, Place, Situation, Time Sensorium: Alert Attention/Concentration: Attentive Estimate of Intelligence: Average Judgement: Intact, as evidence by: Insight regarding need for hospitalization Memory: Recent intact, as evidence by: Ability to recall events of the day, Remote intact, as evidenced by: Abilit to recall sig. life events - Risk Risk: Withdrawal, Diminished functioning - Strength & Assets Inventory Strength & Assets Inventory: Employment history, Cooperative - Limitations Limitations: Living alone DSM 5 DX - DSM 5 DSM 5 Diagnosis: Opioid withdrawal Opioid use d/o severe Cocaine use d/o - severe Tobacco use d/o - severe - Recommended/Plan of Treatment Treatment Recommendations and Plan of Treatment: Subutex detox As needed medications Gabapentin for augmentation Attend groups and activities Supportive therapy and psychoeducation [place] for abstinence CBT for relapse prevention Encourage MAT Refer to rehab or IOP Attend self-help groups as well 34 min Projected ELOS: 4 days Prognosis: good with treatment - Smoking Cessation Smoking Cessation Initiated: Yes
[2017-06-05] MEDS: Buprenorphine Hydrochloride 2 mg SL SCH (10:56)
[2017-06-05 11:10] VITALS: O2SAT 98
[2017-06-05 12:05] LABS: CHLORIDE 106 mmol/L (98-107)
[2017-06-05 12:06] LABS: POTASSIUM 3.9 mmol/L (3.6-5.2); SODIUM 142 mmol/L (132-148)
[2017-06-05 12:07] LABS: GFR AFRICAN-AMERICAN > 60
[2017-06-05 12:08] LABS: ALKALINE PHOSPHATASE 111 U/L (38-126); ALT/SGPT 180 U/L (21-72); AST/SGOT 107 U/L (17-59); BILIRUBIN,TOTAL 0.6 mg/dL (0.2-1.3); BLOOD UREA NITROGEN 19 mg/dL (9-20); CARBON DIOXIDE 23 mmol/L (22-30); GLUCOSE,RANDOM 88 mg/dL (75-110); TOTAL PROTEIN 8.1 g/dL (6.3-8.3)
[2017-06-05 12:09] LABS: CALCIUM 9.5 mg/dl (8.6-10.4)
[2017-06-05 13:16] VITALS: BP 93/61; PULSE 95; TEMP 98.3
--- NOTE | 2017-06-05 14:48 | PCM.PYCHDC ---
Mental Status Examination - Mental Status Examination Orientation: Person Discharge Summary - Discharge Note Laboratory Data: Abnormal Lab Results 06/05/17 06/05/17 11:42 11:42 Sodium 142 Potassium 3.9 Chloride 106 Carbon Dioxide 23 Anion Gap 16 BUN 19 Creatinine 0.8 Est GFR ( Amer) > 60 Est GFR (Non-Af Amer) > 60 Random Glucose 88 Calcium 9.5 Total Bilirubin 0.6 AST 107 H D ALT 180 H Alkaline Phosphatase 111 Total Protein 8.1 Albumin 4.1 Globulin 4.0 H Albumin/Globulin Ratio 1.0 25-OH Vitamin D Total 54.8 Consultations:: List each consultation separately and include: 1. Reason for request. 2. Findings. 3. Follow-up Summary of Hospital Course include:: 1. Description of specific treatment plan utilized for patients during their course of treatmen. 2. Summarize the time- course for resolution of acute symptoms and/or regressed behaviors. 3. Describe issues identified and worked on during hospitalization. 4. Describe medication utilized. 5. Describe medical problems identified and treated. 6. Reassessment of suicide risk Summary of Hospital Course: The patient was admitted and started on treatment with psychotherapy, support, psychoeducation and medications. GA and CBT used. The patient attended groups and activities, as well as milieu therapy. All the risks and benefits of medications are discussed and the patient understood and agreed. The patient improved with the treatments provided. After care discussed with the patient. - Diagnosis (1) Opioid use disorder, severe, dependence Status: Acute (2) Cocaine use disorder, severe, dependence Status: Acute - Final Diagnosis (DSM 5) Condition upon Discharge: STABLE DSM 5: Opioid withdrawal Opioid use d/o severe Cocaine use d/o - severe Tobacco use d/o - severe Disposition: AGAINST MEDICAL ADVICE Follow-up Treatment Plan: Continue below medications after discharge. Follow after care plan as discussed. Use relapse prevention skills. Return to ED or call 911 if suicidal, homicidal or symptoms relapse. Stay away from stress, alcohol and drugs. See primary doctor once a year.
== END 2017-06-05 14:30 | disposition left against medical advice (07) | DRG 430 ==
LOC: C.ER 12:35 → C.7D 16:46
PROVIDERS: ADMIT Psychiatry & Neurology Psychiatry; ATTEND Psychiatry & Neurology Psychiatry
PROC: HZ2ZZZZ Detoxification Services for Substance Abuse Treatment (ICD-10-PCS; principal; 2017-06-03)
DX: F31.9 Bipolar disorder, unspecified (principal); F14.20 Cocaine dependence, uncomplicated; F11.23 Opioid dependence with withdrawal; B19.20 Unspecified viral hepatitis C without hepatic coma; F32.9 Major depressive disorder, single episode, unspecified; F17.210 Nicotine dependence, cigarettes, uncomplicated

== ENCOUNTER 2018-01-07 21:39 | Inpatient (IN) | payer MEDICAID, OTHER ==
--- NOTE | 2018-01-07 22:39 | C.PDOC ---
History Of Present Illness Patient is a 32 y/o M with hx of bipolar, non-compliant with depakote, presenting with suicidal ideation. He reports that he recently found out that he has an active warrant. He reports that this made him suicidal and also relapse and use heroin today. Denies homicidal ideation. Denies somatic complaints. Time Seen by Provider: 01/07/18 22:09 Chief Complaint (Nursing): Psychiatric Evaluation Past Medical History Vital Signs: Last Vital Signs Temp 97.7 F 01/07/18 22:02 Pulse 112 H 01/07/18 22:02 Resp 18 01/07/18 22:02 BP 146/76 01/07/18 22:02 Pulse Ox 99 01/08/18 00:05 - Medical History PMH: Bipolar Disorder, Depression, Hepatitis Denies: Anxiety, Diabetes, HIV, HTN, Personality Disorder, Chronic Kidney Disease, Schizophrenia, Seizures, Sexually Transmitted Disease Surgical History: Appendectomy - [facility] Procedures DETOXIFICATION SERVICES FOR SUBSTANCE ABUSE TREATMENT (06/03/17) GROUP RAW HIDE TRIMMER FOR SUBSTANCE ABUSE TREATMENT, PSYCHOEDUCATION (02/18/17) GROUP RAW HIDE TRIMMER FOR SUBSTANCE ABUSE, COGNITIVE BEHAVIORAL (02/18/17) GROUP PSYCHOTHERAPY (04/04/17) INDIV RAW HIDE TRIMMER FOR SUBSTANCE ABUSE TREATMENT, PSYCHOEDUCATION (02/18/17) INDIV RAW HIDE TRIMMER FOR SUBSTANCE ABUSE, COGNITIVE BEHAVIORAL (02/18/17) INDIV PSYCHOTHERAPY FOR SUBSTANCE ABUSE TREATMENT, SUPPORT (04/04/17) INDIV PSYCHOTHERAPY FOR SUBSTANCE ABUSE, COGNITIV BEHAVIORAL (04/04/17) INDIV PSYCHOTHERAPY FOR SUBSTANCE ABUSE, PSYCHOEDUCATION (04/04/17) Family History: States: Unknown Family Hx - Social History Hx Alcohol Use: No Hx Substance Use: Yes (herion) - Immunization History Hx Tetanus Toxoid Vaccination: Yes Hx Influenza Vaccination: No Hx Pneumococcal Vaccination: No Review Of Systems Except As Marked, All Systems Reviewed And Found Negative. Constitutional: Negative for: Fever, Chills Cardiovascular: Negative for: Chest Pain, Palpitations, Orthopnea, Paroxysmal Noc. Dyspnea, Light Headedness Respiratory: Negative for: Cough, Shortness of Breath, SOB with Excertion Gastrointestinal: Negative for: Nausea, Vomiting, Abdominal Pain, Diarrhea, Constipation Genitourinary: Negative for: Dysuria Musculoskeletal: Negative for: Neck Pain Neurological: Negative for: Weakness, Numbness Psych: Positive for: Depression, Suicidal ideation. Negative for: Anxiety Physical Exam - Physical Exam Appears: Well, Non-toxic, No Acute Distress Skin: Normal Color, Warm, Dry Head: Atraumatic, Normacephalic Eye(s): bilateral: Normal Inspection, PERRL, EOMI Neck: Supple Cardiovascular: Rhythm Regular Respiratory: Normal Breath Sounds Gastrointestinal/Abdominal: Soft, No Tenderness, No Distention Back: Normal Inspection Extremity: Normal ROM Neurological/Psych: Oriented x3 ED Course And Treatment - Laboratory Results Result Diagrams: 01/07/18 23:46 01/07/18 23:46 O2 Sat by Pulse Oximetry: 99 Medical Decision Making Medical Decision Making: Patient placed on 1:1 for safety. Will medically clear and consult psych 11:06PM Crisis reports that patient does not need 1:1 12:00PM Cxray negative. Labs grossly normal (other than elevated lfts-which patient has hx of). EKG shows NSR at 73bpm with normal intervals and no ST changes. Will sign out to Jesse to follow-up and reevaluate after psych recommendations Disposition - Disposition Referrals: Non [facility] Provider, [Primary Care Provider] - Disposition Time: 00:05 Condition: FAIR Forms: [facility] (Greek) - Clinical Impression Clinical Impression: Hematuria, Suicidal ideation, Elevated LFTs, Heroin abuse
[2018-01-07 23:51] LABS: BASO % 0.3 % (0.0-2.0); EOS % 0.2 % (0.0-4.0); HEMOGLOBIN 13.9 g/dL (12.0-18.0); LYMPH # 1.3 K/uL (1.0-4.3); LYMPH % 18.6 % (20.0-40.0); MEAN CELL VOLUME 82.6 fL (80.0-94.0); MEAN CORPUSCULAR HEMOGLOBIN 28.1 pg (27.0-31.0); MEAN PLATELET VOLUME 8.5 fL (7.2-11.7); MONO # 0.7 K/uL (0.0-0.8); MONO % 10.1 % (0.0-10.0); NEUT % 70.8 % (50.0-75.0); NRBC % 0.1 % (0.0-2.0); RBC 4.94 Mil/uL (4.40-5.90); RED CELL DISTRIBUTION WIDTH 14.1 % (11.5-14.5)
[2018-01-07 23:55] LABS: SQUAMOUS EPITHIAL 1 /hpf (0-5); URINE BILIRUBIN NEGATIVE (NEGATIVE); URINE BLOOD NEGATIVE (NEGATIVE); URINE CLARITY Hazy (Clear); URINE COLOR Amber (YELLOW); URINE GLUCOSE (UA) NORMAL (Normal); URINE LEUKOCYTE ESTERASE NEG Leu/uL (Negative); URINE PROTEIN 1+ mg/dL (NEGATIVE)
[2018-01-08 00:08] LABS: ALB/GLOB RATIO 1.1 (1.0-2.1); ALBUMIN 4.5 g/dL (3.5-5.0); ALT/SGPT 92 U/L (21-72); AST/SGOT 152 U/L (17-59); BARBITURATES, UR NEGATIVE (NEGATIVE); BENZODIAZEPINES, UR NEGATIVE (NEGATIVE); BLOOD UREA NITROGEN 16 mg/dL (9-20); CALCIUM 9.2 mg/dl (8.6-10.4); GFR AFRICAN-AMERICAN > 60; GFR NON-AFRICAN AMERICAN > 60; PHENCYCLIDINE, UR NEGATIVE (NEGATIVE)
[2018-01-08 00:16] LABS: OPIATES, UR POSITIVE (NEGATIVE)
[2018-01-08 03:30] VITALS: O2SAT 97
--- NOTE | 2018-01-08 04:37 | PCM.BM ---
<Nilo Fuentes - Last Filed: 01/08/18 04:36> Treatment Plan Problems - Problems identified on initial assessmt Opiates Abuse Date Initiated: 01/08/18 Time Initiated: 04:15 Assessment reference: NA Status: Active Depression Date Initiated: 01/08/18 Time Initiated: 04:15 Assessment reference: NA Status: Active Treatment assets and liabiliti Patient Assests: ADL independent, physically healthy Patient Liabilities: substance abuse (Opiates, Marijuana, Cocaine) - Milieu Protocol Maintain good personal hygiene: daily Encourage regular showers, daily Remind patient to perform daily oral care, every shift Assist patient to perform ADL's Conduct patient checks and document Observation sheet: Q15 minutes Maintain personal safety: every shift Educate patient to report safety concerns to staff, every shift Monitor environment for contraband/sharps Medication safety: Monitor for expected outcome, potential side effects: every shift, Assess barriers to learning: every shift, Assess readiness for medication education: every shift <Shahram Mercado - Last Filed: 01/08/18 13:47> - Diagnosis (1) Depression Status: Acute Interventions: 01/08/18 13:47 * Assess/adjust medications daily and /or as needed * See patient on an individual basis 7x/week to assess symptoms of depression * Monitor for side effects & effectiveness of medications * (2) Opioid use disorder, severe, dependence Status: Acute Interventions: 01/08/18 13:47 * Assess 7x/week regarding severity of withdrawal * Educate regarding risks, benefits, side effects and alternatives of medications * Use Motivational Interviewing for abstinence * Use CBT for relapse prevention * Medication management for withdrawal symptoms * Encourage medication assisted treatment * <Mary Brar - Last Filed: 01/09/18 09:53> Family Contact Family involvement: Patient does not wish Family/SO involvement Family contact: Patient declines to allow family contact at present - Goals for Treatment Patient goals for treatment: " I want to go to a rehab." Discharge/Continuing Care - Education Needs Education Needs: Patient Medication, Patient Coping Skills, Patient Community resources, Patient Aftercare Safety Plan - Discharge Discharge Criteria: Free of Suicidal thoughts, Normal sleep pattern, Ability to care for self, No longer exhibiting s/s of withdrawal, Reduction of target symptoms Discharge to:: Substance Abuse Rehab - Treatment Team Participation Discussed with Family/SO: No Was Patient/Family/SO present at Treatment Team Meeting: Yes
[2018-01-08 05:38] VITALS: RESP 20; TEMP 97.6
--- NOTE | 2018-01-08 09:22 | RAD ---
Chest x-ray single frontal view History: Psychiatric evaluation. Comparison: None available. Findings: No focal infiltrate or effusion. Heart size within normal limits. Impression: No focal infiltrate or effusion.
--- NOTE | 2018-01-08 10:42 | PCM.PSYCH ---
Initial Psychiatric Evaluation - Initial Psychiatric Evaluation Type of Admission: Voluntary Legal Status: Capacity Past Psychiatric History - Past Psychiatric History Pertinent Medical Hx (Current Medical&Sleep Prob, Allergies): Allergies Allergy/AdvReac Type Severity Reaction Status Date / Time No Known Allergies Allergy Verified 01/07/18 22:01 Divalproex [Depakote ER] 500 mg PO BID 01/07/18
--- NOTE | 2018-01-08 12:54 | PCM.PSYCH ---
Initial Psychiatric Evaluation - Initial Psychiatric Evaluation Type of Admission: Voluntary Legal Status: Capacity Chief Complaint (in patient's own words): "I am depressed" History of Present Illness and Precipitating Events: The patient is seen, chart reviewed and case discussed. He is known from previous admissions. This is a 32-year-old male, single with 2 children, one is 11 years old and the other is 5 m/o, he has a GF but he stays with his mother. He is practically homeless and unemployed. He just left [facility] after 3 months, b/c he "didn't like" his counselor. He is willing to go back if he gets a new one, but he is open to other "alf" solutions as well. He left a week ago and has been using heroin2-3 bags iv and cocaine iv since then, but not everyday and he denies wdw sx. He smokes 1 pack per day cigarettes. He denies other drugs but he feel depressed and had vague suicide thoughts prior to admission, denies now. He wants to continue his depakote (which helps irritability) and agreed to start on lexapro. No manic/psychotic sxs. No wdw sxs. Past psych history: Couple of admissions and one suicide attempt "very long ago " Family psych history: Denies Medical history: Hepatitis C Past Psychiatric History - Past Psychiatric History Previous Treatment History: Inpatient Pertinent Medical Hx (Current Medical&Sleep Prob, Allergies): Allergies Allergy/AdvReac Type Severity Reaction Status Date / Time No Known Allergies Allergy Verified 01/07/18 22:01 Divalproex [Depakote ER] 500 mg PO BID 01/07/18 Review of Systems - Psychiatric Psychiatric: Abnormal Sleep Pattern, Anhedonia, Anxiety, Change in Appetite, Depression, Difficulty Concentrating, Irritability. absent: Hallucinations, Homicidal Ideation, Hopelessness, Paranoia, Suicidal Ideation Mental Status Examination - Personal Presentation Personal Presentation: Looks older than stated age - Affect Affect: Constricted - Motor Activity Motor Activity: Calm - Reliability in Providing Information Reliability in Providing Information: Good - Speech Speech: Organized - Mood Mood: Depressed, Anxious - Formal Thought Process Formal Thought Process: No Impairment - Cognitive Functions Orientation: Person, Place, Situation, Time Sensorium: Alert Attention/Concentration: Attentive Estimate of Intelligence: Average Judgement: Intact, as evidence by: Insight regarding need for hospitalization Memory: Recent intact, as evidence by: Ability to recall events of the day, Remote intact, as evidenced by: Abilit to recall sig. life events - Risk Risk: Diminished functioning - Strength & Assets Inventory Strength & Assets Inventory: Cooperative - Limitations Limitations: Living alone, Other DSM 5 DX - DSM 5 DSM 5 Diagnosis: Depressive d/o - unspecified Opioid withdrawal Opioid use d/o severe Cocaine use d/o - severe Tobacco use d/o - severe - Recommended/Plan of Treatment Treatment Recommendations and Plan of Treatment: Lexapro for depression Depakote for irritability, refused seroquel As needed medications Gabapentin for augmentation and anxiety Attend groups and activities Supportive therapy and psychoeducation [place] for abstinence CBT for relapse prevention Encourage MAT Refer to rehab or IOP Attend self-help groups as well Nicotine patch if needed Smoking cessation discussed. 34 min Projected ELOS: 4-5 days Prognosis: good with treatment - Smoking Cessation Smoking Cessation Initiated: Yes
[2018-01-08] MEDS: Divalproex 500 mg DR Tab PO SCH (17:23)
[2018-01-09] MEDS: Divalproex 500 mg DR Tab PO SCH ×2 (10:44→17:46)
[2018-01-10] MEDS: Divalproex 500 mg DR Tab PO SCH ×2 (09:10→17:10)
[2018-01-10 16:13] VITALS: BP 108/56; PULSE 69
--- NOTE | 2018-01-10 20:44 | PCM.PYCHDC ---
Mental Status Examination - Mental Status Examination Orientation: Person, Place, Situation, Time Memory: Intact Mood: Anxious Affect: Constricted Speech: Appropriate Attention: WNL Concentration: WNL Association: WNL Fund of Knowledge: WNL Formal Thought Process: No Impairment Suicidal Ideation: No Current Homicidal Ideation?: No Discharge Summary - Discharge Note Reason for Hospitalization: Depression, suicidal thoughts Consultations:: List each consultation separately and include: 1. Reason for request. 2. Findings. 3. Follow-up Summary of Hospital Course include:: 1. Description of specific treatment plan utilized for patients during their course of treatmen. 2. Summarize the time- course for resolution of acute symptoms and/or regressed behaviors. 3. Describe issues identified and worked on during hospitalization. 4. Describe medication utilized. 5. Describe medical problems identified and treated. 6. Reassessment of suicide risk Summary of Hospital Course: The patient is seen, chart reviewed and case discussed. On admission: This is a 32-year-old male, single with 2 children, one is 11 years old and the other is 5 m/o, he has a GF but he stays with his mother. He is practically homeless and unemployed. He just left [facility] after 3 months, b/c he "didn't like" his counselor. He is willing to go back if he gets a new one, but he is open to other "prison" solutions as well. He left a week ago and has been using heroin2-3 bags iv and cocaine iv since then, but not everyday and he denies wdw sx. He smokes 1 pack per day cigarettes. He denies other drugs but he feel depressed and had vague suicide thoughts prior to admission, denies now. He wants to continue his depakote (which helps irritability) and agreed to start on lexapro. No manic/psychotic sxs. No wdw sxs. Past psych history: Couple of admissions and one suicide attempt "very long ago " Family psych history: Denies Medical history: Hepatitis C Hospital course: The pt was admitted and started on treatment with psychotherapy, support, psychoeducation and medications. [place] and CBT used. The pt attended few groups and activities, as well as milieu therapy. All the risks and benefits of medications are discussed and the patient understood and agreed. The pt improved with the treatments provided. He is even started on methadone detox despite shoort period outside that he used. He had mild wdw sxs. After care discussed with the patient. He was interested in rehab. Then, he hooked up with a woman on the unit and started kissing her and challenging staff: "what can you do?" He signed a 48 hr and d/c'ed AMA with personnel security assistant. - Diagnosis (1) Depression Status: Acute (2) Opioid use disorder, severe, dependence Status: Acute - Final Diagnosis (DSM 5) Condition upon Discharge: FAIR Disposition: AGAINST MEDICAL ADVICE Follow-up Treatment Plan: Go to methadone maintenance Use relapse prevention skills Return to ER or call 911 if suicidal, homicidal or symptoms relapse. Stay away from stress, alcohol and drugs. See primary doctor regularly and get labs.
--- NOTE | 2018-01-10 20:44 | PCM.PYCHPN ---
Psychiatric Progress Note - Psychiatric Progress Note Patient seen today, length of contact: 16 min Patient Chief Complaint: "I am withdrawing" Problems Identified/Issues Discussed: The pt is seen, chart reviewed, case discussed with staff. Support given, CBT and AL used briefly No new symptoms reported improving slowly and needs more time No SEs from medications, risks discussed. After care discussed Medication Change: Yes Medical Record Reviewed: Yes Mental Status Examination - Cognitive Function Orientation: Person, Place, Situation, Time Memory: Intact Attention: WNL Concentration: Poor Association: WNL Fund of Knowledge: WNL - Mood Mood: Depressed, Anxious - Affect Affect: Constricted - Speech Speech: Appropriate - Formal Thought Process Formal Thought Process: No Impairment - Suicidal Ideation Suicidal Ideation: No - Homicidal Ideation Homicidal Ideation: No Goal/Treatment Plan - Goal/Treatment Plan Need for Continued Stay: Discharge may exacerbated symptoms, Severe functional impairment Progress Toward Problem(s) and Goals/Treatment Plan: Lexapro for depression Depakote for irritability, refused seroquel As needed medications Gabapentin for augmentation and anxiety Attend groups and activities Supportive therapy and psychoeducation AL for abstinence CBT for relapse prevention Encourage MAT Refer to rehab or IOP Attend self-help groups as well Nicotine patch if needed Smoking cessation discussed.
--- NOTE | 2018-01-12 22:15 | CARD ---
APPROVED REPORT EKG Measurement Heart [id number] <Conclusion> Normal sinus rhythm Normal ECG
== END 2018-01-10 20:30 | disposition left against medical advice (07) | DRG 426 ==
LOC: C.ER 21:39 → SUPCPDRO 21:39 → C.5E 01-08 02:51
PROVIDERS: ADMIT Psychiatry & Neurology Psychiatry; ATTEND Psychiatry & Neurology Psychiatry
PROC: HZ52ZZZ Individual Psychotherapy for Substance Abuse Treatment, Cognitive-Behavioral (ICD-10-PCS; principal; 2018-01-08)
PROC: HZ59ZZZ Individual Psychotherapy for Substance Abuse Treatment, Supportive (ICD-10-PCS; 2018-01-08)
PROC: HZ56ZZZ Individual Psychotherapy for Substance Abuse Treatment, Psychoeducation (ICD-10-PCS; 2018-01-08)
DX: F32.9 Major depressive disorder, single episode, unspecified (principal); F11.23 Opioid dependence with withdrawal; F14.90 Cocaine use, unspecified, uncomplicated; B19.20 Unspecified viral hepatitis C without hepatic coma; F17.210 Nicotine dependence, cigarettes, uncomplicated; F41.9 Anxiety disorder, unspecified; R45.851 Suicidal ideations; R79.89 Other specified abnormal findings of blood chemistry; R31.9 Hematuria, unspecified; Z59.0 Homelessness; Z91.14 Patient's other noncompliance with medication regimen